=== PATIENT | male | born 1955 | race Caucasian/White ===

== ENCOUNTER 2017-05-31 17:05 | Emergency (ER) | payer BC ==
[2017-05-31] MEDS ORDERED: Aspirin 81 MG Tab.Chew PO ONE (17:21)
--- NOTE | 2017-05-31 17:26 | EDM.PDOC ---
ED HPI GENERAL MEDICAL PROBLEM - General Chief Complaint: Chest Pain Stated Complaint: CHEST PAIN Time Seen by Provider: 05/31/17 17:21 Source of Information: Reports: Patient History Limitations: Reports: No Limitations - History of Present Illness INITIAL COMMENTS - FREE TEXT/NARRATIVE: 62-year-old male presents to the ED with central chest pressure discomfort which she describes as squeezing. CT scan had off and on for the better part of a week but much worse today while at work. States he wasn't really doing anything strenuous when he came on. He thought it might be stress related as the day was rather stressful. No associated feeling of heartburn he does not use Tums or Rolaids. He thinks he may have get some relief from burping or belching. He said no previous chest surgery.Denies cough or sputum production. Denies any fever or chills. States his bowel function is normal. Nothing that would be worrisome for peptic ulcer disease. States he has not had a beer for a week. He states he has no trouble swallowing and no odynophagia. Patient Reports of the chest pressure discomfort is any other worse with exertion or at rest. Food never gets stuck on him. He is a nonsmoker. ECG done by triage nurse shows sinus rhythm at 73/m with no signs of ischemia. There is a mild diffuse early repolarization pattern. Vital signs are normal. O2 sats of 98% on room air. BP is 135/68. Onset: Gradual Onset Date: 05/24/17 Onset Time: 16:00 (Central chest squeeze discomfort worse since 1400 hrs. today. ) Duration: Day(s):, Getting Worse (Worse chest discomfort today.), Intermittent, Waxing/Waning Location: Reports: Chest Quality: Reports: Ache (Central chest with no radiation to neck arms or back.), Pressure Severity: Moderate (Squeezing type discomfort.) Improves with: Reports: None ( It said as a 5 or 6 out of 10.) Worsens with: Reports: None Context: Reports: Other (Spontaneous occurrence just a little worse than when he is exposed over the last week. Satted nearly daily.). Denies: Activity, Exercise, Lifting, Sick Contact, Trauma Associated Symptoms: Reports: Chest Pain. Denies: No Other Symptoms, Confusion (See history of present illness), Cough, cough w sputum, Diaphoresis, Fever/ Chills, Headaches, Loss of Appetite, Malaise, Nausea/Vomiting, Rash, Seizure, Shortness of Breath, Syncope, Weakness Treatments [employer]: Reports: Other (see below) (None.) Middle Chest Pain Score (Numeric/FACES): 3 - Related Data Allergies Allergy/AdvReac Type Severity Reaction Status Date / Time milk Allergy Indigestion Verified 05/31/17 17:13 weed pollen Allergy Airway Verified 05/31/17 17:13 Tightness Home Meds: Home Meds Cholecalciferol (Vitamin D3) [Vitamin D3] 4,000 unit PO DAILY 05/31/17 [History] Finasteride 1 mg PO DAILY 05/31/17 [History] Fluticasone Propionate [Flonase] 16 gm NS BEDTIME 05/31/17 [History] Lutein 20 mg PO DAILY 05/31/17 [History] Past Medical History Genitourinary History: Reports: BPH, Other (See Below) (Nocturia 2.) Social & Family History - Living Situation & Occupation Living situation: Reports: Occupation: Employed ED ROS GENERAL - Review of Systems Review Of Systems: See Below Constitutional: Reports: No Symptoms HEENT: Reports: No Symptoms Respiratory: Reports: No Symptoms Cardiovascular: Reports: Chest Pain. Denies: Blood Pressure Problem (See history of present illness), Claudication, Dyspnea on Exertion, Edema, Lightheadedness, Orthopnea, Palpitations Endocrine: Reports: No Symptoms GI/Abdominal: Reports: No Symptoms : Reports: Frequency, Other (Known prostatic hypertrophy. Anterior 2) Musculoskeletal: Reports: No Symptoms Skin: Reports: No Symptoms Neurological: Reports: No Symptoms Psychiatric: Reports: No Symptoms Hematologic/Lymphatic: Reports: No Symptoms Immunologic: Reports: No Symptoms ED EXAM, GENERAL - Physical Exam Exam: See Below Exam Limited By: No Limitations General Appearance: Alert, WD/WN, No Apparent Distress Eye Exam: Bilateral Eye: Normal Inspection (No jaundice.) Throat/Mouth: Normal Inspection, Normal Lips, Normal Teeth, Normal Oropharynx Head: Atraumatic, Normocephalic Neck: Normal Inspection, Supple, Non-Tender, Full Range of Motion. No: Lymphadenopathy (L), Lymphadenopathy (R) Respiratory/Chest: No Respiratory Distress, Lungs Clear, Normal Breath Sounds, No Accessory Muscle Use, Chest Non-Tender Cardiovascular: Normal Peripheral Pulses, Regular Rate, Rhythm, No Edema, No Gallop, No Murmur Peripheral Pulses: 2+: Posterior Tibial (L), Posterior Tibial (R), Dorsalis Pedis (L), Dorsalis Pedis (R) GI/Abdominal: Soft, Non-Tender, No Organomegaly, No Mass, Distended (Diffuse hyperactive bowel sounds. Distended intubated to percussion in the epigastrium.) , Abnormal Bowel Sounds, Other (No previous evidence of abdominal surgery). No : Guarding (Negative Romberg sign), Rigid, Rebound, Tender (Male) Exam: No Hernia Back Exam: Normal Inspection, Full Range of Motion. No: CVA Tenderness (L), CVA Tenderness (R) Extremities: Normal Inspection, Normal Range of Motion, Non-Tender, No Pedal Edema Neurological: Alert, Oriented, CN II-XII Intact, Normal Cognition, Normal Gait Psychiatric: Normal Affect, Normal Mood Skin Exam: Warm, Dry, Intact, Normal Color, No Rash EKG INTERPRETATION EKG Date: 05/31/17 Time: 17:10 Rhythm: NSR Rate (Beats/Min): 73 [place]: Normal P-Wave: Present QRS: Normal ST-T: Other QT: Normal (Diffuse early repolarization pattern.) EKG Interpretation Comments: Normal ECG. Course - Vital Signs Last Recorded V/S: Last Vital Signs Temp 36.3 C 05/31/17 17:23 Pulse 74 05/31/17 18:00 Resp 18 05/31/17 18:00 BP 142/84 H 05/31/17 18:00 Pulse Ox 97 05/31/17 18:00 - Orders/Labs/Meds Labs: Laboratory Tests 05/31/17 05/31/17 05/31/17 Range/Units 17:15 17:15 17:15 WBC 6.95 (4.23-9.07) K/mm3 RBC 4.82 (4.63-6.08) M/mm3 Hgb 14.5 (13.7-17.5) gm/L Hct 42.3 (40.1-51.0) % MCV 87.8 (79.0-92.2) fl MCH 30.1 (25.7-32.2) pg MCHC 34.3 (32.2-35.5) g/dl RDW Std Deviation 41.3 (35.1-43.9) fL Plt Count 289 (163-337) K/mm3 MPV 9.1 L (9.4-12.3) fl Neutrophils % (Manual) 51 (40-60) % Band Neutrophils % 1 (0-10) % Lymphocytes % (Manual) 40 (20-40) % Atypical Lymphs % 0 % Monocytes % (Manual) 7 (2-10) % Eosinophils % (Manual) 1 (0.8-7.0) % Basophils % (Manual) 0 L (0.2-1.2) Platelet Estimate Adequate RBC Morph Comment Normal PT 10.3 (8.0-13.0) SECONDS INR 0.96 Sodium 137 (136-145) mEq/L Potassium 4.1 (3.5-5.1) mEq/L Chloride 104 (98-107) mEq/L Carbon Dioxide 25 (21-32) mEq/L Anion Gap 12.1 (5-15) BUN 20 H (7-18) mg/dL Creatinine 1.2 (0.7-1.3) mg/dL Est Cr Clr Drug Dosing 67.59 mL/min Estimated GFR (MDRD) > 60 (>60) mL/min BUN/Creatinine Ratio 16.7 (14-18) Glucose 111 H (74-106) mg/dL Calcium 8.9 (8.5-10.1) mg/dL Total Bilirubin 0.5 (0.2-1.0) mg/dL AST 10 L (15-37) U/L ALT 36 (16-63) U/L Alkaline Phosphatase 94 (46-116) U/L CK-MB (CK-2) 0.6 (0-3.6) ng/ml Troponin I < 0.017 (0.00-0.056) ng/mL C-Reactive Protein < 0.2 (<1.0) mg/dL Total Protein 7.1 (6.4-8.2) g/dl Albumin 4.2 (3.4-5.0) g/dl Globulin 2.9 gm/dL Albumin/Globulin Ratio 1.5 (1-2) Meds: Medications Discontinued Medications Generic Name Dose Route Start Last Admin Trade Name Freq PRN Reason Stop Dose Admin Aspirin 324 mg 05/31/17 17:21 05/31/17 17:30 Aspirin PO 05/31/17 17:22 324 mg ONETIME ONE Administration Al Hydroxide/Mg Hydroxide 30 0 ml 05/31/17 17:30 05/31/17 17:30 ml/ Lidocaine HCl 15 ml PO 05/31/17 17:31 45 ml ONETIME ONE Administration Hydromorphone HCl 0.5 mg 05/31/17 17:53 05/31/17 17:59 Dilaudid IVPUSH 05/31/17 17:54 Not Given ONETIME ONE Nitroglycerin/Dextrose 25 mg in 250 mls @ 6 mls/hr 05/31/17 17:30 Nitroglycerin 25 Mg/D5w 250 Ml IV ASDIRECTED VICKEY 10 MCG/MIN Sodium Chloride 1,000 mls @ 100 mls/hr 05/31/17 17:30 05/31/17 17:49 Normal Saline IV 100 mls/hr ASDIRECTED VICKEY Administration Magnesium Citrate 240 ml 05/31/17 18:43 05/31/17 18:50 Citrate Of Magnesia PO 05/31/17 18:44 240 ml ONETIME ONE Administration Metoclopramide HCl 7.5 mg 05/31/17 17:53 05/31/17 17:59 Reglan IVPUSH 05/31/17 17:54 Not Given ONETIME ONE - Radiology Interpretation Free Text/Narrative:: 62-year-old male presents the ED for evaluation of recurrent central chest pressure discomfort that he's been expressing off and on for the better part of a week. To be worse this afternoon about 1600 hrs. Describes it as a squeezing sensation central chest with no relief from anything. Perhaps minimal relief with burping or belching. No prone to heartburn does not use Tums or Rolaids. No known coronary disease. Pain is not initially worse on exertion or walking. Eyes any heartburn issues. Examination is completely normal with normal vital signs. No chest wall tenderness elicited. Normal ECG. Abdomen shows very active bowel sounds in all 4 quadrants. Therefore have one view of the abdomen is one view of the chest obtained. He will be treated as if he has an [place] until I know for sure. 24 mg aspirin chewed. Nitro drip at 10 mcg/m. Will give him a GI cocktail as well to see if it relieves his discomfort. - Re-Assessments/Exams Free Text/Narrative Re-Assessment/Exam: 05/31/17 17:52 1 view chest x-ray is within normal limits. Cardiac silhouette is normal. Lites portion of the lungs are clear. One view of the abdomen was also carried out. It reveals extensive constipation with increased stool throughout the entire right hemicolon and transverse colon and portions of the descending colon. Nurse reports that patient did receive some mild relief of discomfort with the GI cocktail but not complete relief. Plan we will give him Dilaudid 0.5 mg IV with Zofran 4 mg IV. 05/31/1809: Nurse reports that the patient refused his Dilaudid and Reglan as he felt his pain was continuing to improve. 05/31/17 18:23 Labs are back. White count is normal at 6.95 with 51% neutrophils and 1% band cells reported. Hemoglobin is 14.5 with hematocrit of 42.3. Platelet count is normal at 299,000. He is 10.3 with an INR of 0.96. Sodium was 137 potassium of 4.1. Chloride 104 with a bicarbonate 25. Anion gap is 12.1. BUN was 20 with a creatinine of 1.2. GFR remains greater than 60. Glucose is 111. Calcium is 8.9. Bilirubin 0.5. AST is 10 with an ALT of 36. Alkaline phosphatase normal at 94. CK-MB fraction is 0.6 with a normal troponin I of less than 0.017. C-reactive protein is less than 0.2. Therefore there is no sign of cardiac involvement in his current chest pain discomfort. It is suspect that it is referred pain from his upper GI tract likely from hiatal hernia which is being aggravated by large amount of stool throughout the entire transverse colon right hemicolon and descending colon. This reports he does walk fairly regularly on the treadmill test and never has any chest discomfort which is reassuring. 05/31/17 18:43 patient walked in the hallway briskly with no issues. He will therefore be discharged to home. Plan will be to use Citroma tonight to provide bowel cleanse. Departure - Departure Time of Disposition: 18:50 Disposition: Home, Self-Care 01 Condition: Fair Clinical Impression: Non-cardiac chest pain, Hiatal hernia, Constipation by delayed colonic transit Instructions: Hernia, Adult, Nonspecific Chest Pain, Constipation, Adult Referrals: PCP,Not In Area [Primary Care Provider] - Forms: ED Department Discharge Additional Instructions: Evaluation in the emergency room today in regards to development of squeezing central chest pressure discomfort which would became much worse than he which he expressed over the last week today while at work. By history you have no history of heart related illness. ECG done through the ED did not show any signs of heart attack or ischemia. Chest x-ray to prove to be within normal limits. An x-ray of the abdomen showed increased stool throughout the entire right hemicolon the transverse colon which runs under your diaphragm in the midline and parts of the descending left colon. This is compatible with constipation. I suspect the current chest discomfort is due to a hiatal hernia being pushed up by the air and stool in the large bowel. Lab tests revealed no evidence of heart related illness. In fact all of the labs were completely normal with no abnormalities of the kidneys the liver or blood etc. You did receive a GI cocktail in the ED which partially relieved her discomfort. This means you may well have a's low-grade inflammation of the lower part of your food pipe from reflux of acid during the night which she would not be aware of. This can cause the food pipe to go into intermittent spasm and cause central chest pain mimicking heart attack. You do require some treatment to relieve the constipation issues and I would suggest Citroma 8 ounces mixed with 4-5 ounces of juice of choice taken by mouth once. This medication will take an hour or so to work will usually make her bowels work 3 or 4 times tonight providing bowel cleanse and I suspect relief of upper abdominal pressure discomfort and chest discomfort. Continue all of your other regular activities such as treadmill walking and so on. Follow-up with personal doctor if you develop any central chest pressure discomfort or problem persists. This would mean he would require further investigation by way of upper GI endoscopy.
[2017-05-31] MEDS ORDERED: Sodium Chloride 0.9% 1,000 ML IV SCH (17:30)
[2017-05-31] MEDS ORDERED: Alum Hydrox/Mag Hydrox/Simeth 30 ML, Lidocaine 2% 15 ML PO ONE ×2 (17:30)
[2017-05-31] MEDS ORDERED: Nitroglycerin/D5W 25 MG/250 ML BOTTLE IV SCH (17:30)
[2017-05-31] MEDS ORDERED: HYDROmorphone 0.5 MG/0.5 ML SYRINGE IVPUSH ONE (17:53)
[2017-05-31] MEDS ORDERED: Metoclopramide 10 MG/2 ML SDV IVPUSH ONE (17:53)
[2017-05-31] MEDS ORDERED: Magnesium Citrate Solution 296 ML Bottle PO ONE (18:43)
--- NOTE | 2017-06-01 06:19 | CR ---
Abdomen: Supine view of the abdomen was obtained. Comparison: No previous study. Calcifications are seen within the pelvis compatible with phleboliths. Bowel gas pattern is normal. Bony structures are unremarkable. Impression: 1. Nothing acute is seen on supine abdominal x-ray. Diagnostic code #2
--- NOTE | 2017-06-01 06:19 | CR ---
Chest: Portable view of the chest was obtained. Comparison: No previous study. Heart size and mediastinum are normal. Lungs are clear. Bony structures are grossly intact. Impression: 1. Nothing acute is seen on portable chest x-ray. Diagnostic code #1
== END 2017-05-31 18:51 | disposition home or self-care (01) ==
LOC: JD.ED 17:05
DX: R07.89 Other chest pain (principal); K44.9 Diaphragmatic hernia without obstruction or gangrene; K59.01 Slow transit constipation; Z91.011 Allergy to milk products; Z91.048 Other nonmedicinal substance allergy status; Z79.899 Other long term (current) drug therapy
CPT/HCPCS: 36415; 71045; 74018; 80053; 82553; 84484; 85025; 85610; 86140; 93005; 96360; 99285; A9270; J7040; 93010; 99284-25